=== PATIENT | male | born 1980 | race Caucasian/White ===

== ENCOUNTER 2016-12-20 17:52 | Emergency (ER) | payer OTHER ==
[~2016-12-20] VITALS: Ht 162.6 cm; Wt 53.1 kg
[~2016-12-20 17:52] MED LIST: CARBXR200 PO; LISI-363 PO; MULT-65 PO; TEGR100T PO; ZOFR4SOL PO; ZOFR4TAB3 SL
[2016-12-20 17:57] VITALS: BP 111/74; PULSE 89; RESP 16; TEMP 98.7; O2SAT 99
--- NOTE | 2016-12-20 18:44 | PD ---
HPI Chief Complaint: Headache Time Seen by Provider: 18:40 Travel History International Travel<30 days: No Contact w/Intl Traveler<30days: No Traveled to known affect area: No History of Present Illness HPI Patient is a 36-year-old male presenting to the emergency department for evaluation of a headache injury. Patient states he was hit in head with a volleyball, it caused immediate headache. Patient states he laid on the floor until he regained his composure. He denies any loss of consciousness any vomiting a change in mentation. 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 Patient also has a medical history of cerebral palsy, seizure disorder. He denies any other complaints at this time. PFSH Past Medical History Hx Anticoagulant Therapy: Yes Arthritis: Yes (RT KNEE) Asthma: No Blood Disorders: No Anxiety: No Depression: No Heart Rhythm Problems: No Cancer: No Cardiac Catheterization: No High Cholesterol: No Chemotherapy: No Chest Pain: No Congestive Heart Failure: No COPD: No Diabetes: No Diminished Hearing: No Endocrine: No Gastrointestinal Disorders: Yes (ULCER) Genitourinary: No Headaches: Yes Hypertension: Yes Immune Disorder: No Implanted Vascular Access Dvce: Yes (EYEGLASS LENS GRINDER SHUNT) Musculoskeletal: Yes (cerebral palsy) Neurologic: Yes (HYDROCEPHALUS) Psychiatric: No Reproductive: No Respiratory: Yes Immunizations Current: Yes Radiation Therapy: No 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) Sleep Apnea: No Thyroid Disease: No Ulcer: Yes Tetanus Vaccination: < 5 Years Influenza Vaccination: No Past Surgical History Abdominal Surgery: Yes (J-TUBE, REMOVED) Body Medical Devices: vp of technology shunt Cardiac Surgery: No Coronary Artery Bypass Graft: No Ear Surgery: No Endocrine Surgery: No Eye Surgery: No Genitourinary Surgery: No Gynecologic Surgery: No Neurologic Surgery: Yes (EYEGLASS LENS GRINDER SHUNT + REVISED 2009, 2012 ) Oral Surgery: No Pacemaker: No Thoracic Surgery: No Other Surgery: Yes (cerebal palsy, release tendons on right leg) Social History Alcohol Use: No Tobacco Use: No Substance Use: No Allergies-Medications (Allergen,Severity, Reaction): Coded Allergies: Prilosec (Verified Allergy, Severe, ABDOMINAL PAIN, 12/20/16) Sudafed (Verified Allergy, Unknown, UNKNOWN, 12/20/16) Reported Meds & Prescriptions Reported Meds & Active Scripts Active Reported Lisinopril 20 Mg Tab 20 Mg PO HS Tegretol-Xr 12 HR (Carbamazepine) 200 Mg Tab 200 Mg PO DAILY IN THE AM Tegretol-Xr 12 HR (Carbamazepine) 200 Mg Tab 300 Mg PO HS Take 1 tablet (200mg) with 100mg tablet for a total dose of 300mg Tegretol-Xr 12 HR (Carbamazepine) 100 Mg Tab 300 Mg PO HS Take 1 tablet (100mg) with 200mg tablet for a total dose of 300mg Review of Systems Except as stated in HPI: all other systems reviewed are Neg Eyes: No: Blurred Vision, Visual changes HENT: Positive: Headaches Gastrointestinal: Positive: Nausea Neurologic: Positive: Headache, No: Focal Abnormalities, Change in Mentation, Sensory Disturbance Physical Exam Narrative GENERAL: Well-developed, well-nourished, alert male. Resting comfortably in no acute distress. SKIN: Warm and dry. No rash or obvious lesions. HEAD: Atraumatic. Normocephalic. EYES: Pupils equal and round. No scleral icterus. No injection or drainage. ENT: No nasal bleeding or discharge. Mucous membranes pink and moist. NECK: Trachea midline. No JVD. CARDIOVASCULAR: Regular rate and rhythm. No murmur appreciated. RESPIRATORY: No accessory muscle use. Clear to auscultation. Breath sounds equal bilaterally. GASTROINTESTINAL: Abdomen soft, non-tender, nondistended. Hepatic and splenic margins not palpable. MUSCULOSKELETAL: No obvious deformities. No clubbing. No cyanosis. No edema. NEUROLOGICAL: Awake and alert. No obvious cranial nerve deficits. Motor grossly within normal limits. Normal speech. PSYCHIATRIC: Appropriate mood and affect; insight and judgment normal. Data Data Last Documented VS Vital Signs Date Time Temp Pulse Resp B/P Pulse Ox O2 Delivery O2 Flow Rate FiO2 12/20/16 18:17 Room Air 12/20/16 17:57 98.7 89 16 111/74 99 Orders Shunt Series (12/20/16 ) Ct Brain W/O Iv Contrast(Rout) (12/20/16 ) MDM Medical Decision Making Medical Screen Exam Complete: Yes Emergency Medical Condition: Yes Interpretation(s) Vital Signs Date Time Temp Pulse Resp B/P Pulse Ox O2 Delivery O2 Flow Rate FiO2 12/20/16 18:17 Room Air 12/20/16 17:57 98.7 89 16 111/74 99 Differential Diagnosis Contusion versus concussion versus hemorrhage versus other Narrative Course Patient is a 36-year-old male presenting to the emergency department for evaluation after being hit in head with a volleyball. Patient was concerned because he has a EYEGLASS LENS GRINDER shunt. Patient is neurologically intact. He does have cerebral palsy. Shunt series reports an intact shunt CT of the brain is negative for acute abnormality Patient was advised on findings. He is encouraged to follow-up with his primary doctor. He was encouraged take jhzw-shj-cyjxzik acetaminophen or ibuprofen as needed and as directed for headaches. He is advised to return to emergency department immediately for any new or worsening symptoms. He verbalized understanding of these instructions. Patient is stable for discharge. Diagnosis Primary Impression: Minor head injury without loss of consciousness Qualified Code: S09.90XA - Minor head injury without loss of consciousness, initial encounter Referrals: Primary Care Physician Patient Instructions: General Instructions, Head Injury (ED) Additional Instructions: Follow-up with your primary doctor Take mxwj-clw-fdaaimp acetaminophen or ibuprofen as needed and as directed for headaches Return to emergency department immediately for any new or worsening symptoms Med/Other Pt SpecificInfo: No Change to Meds Disposition: 01 DISCHARGE HOME Condition: Stable Patrizia Whatley [facility] Dec 20, 2016 18:44
--- NOTE | 2016-12-20 18:53 | RADRPT ---
EXAM DATE/TIME: 12/20/2016 18:34 [facility] COMPARISON: CT BRAIN W/O CONTRAST, June 30, 2016, 0:16. INDICATIONS : Hit in head with volleyball today, cephalgia. RADIATION DOSE: 38.99 CTDIvol (mGy) MEDICAL HISTORY : Seizures.cerebral palsy SURGICAL HISTORY : COPIER OPERATOR shunt placement ENCOUNTER: Initial ACUITY: 1 day PAIN SCALE: 7/10 LOCATION: Bilateral head TECHNIQUE: Multiple contiguous axial images were obtained of the head. Using automated exposure control and adj ustment of the mA and/or kV according to patient size, radiation dose was kept as low as reasonably a chievable to obtain optimal diagnostic quality images. FINDINGS: Shunt catheter tubing from a right frontal approach again seen and unchanged. There are no fractures. Previous sherie hole placement seen and unchanged. There is marked atrophy posteriorly with white radha er volume loss and associated dilatation of the posterior horns unchanged. A large calcified subdural collection along the left cerebral convexity with mild associated mass effect is unchanged. There is a smaller chronic subdural collection with peripheral calcification on the right. No acute hemorrhag e, infarct, or mass. CONCLUSION: No significant change has occurred. Jonathon Fenton MD on December 20, 2016 at 18:49 Board Certified Radiologist. This report was verified electronically.
[2016-12-20] MEDS ORDERED: TEGR100T PO (19:07)
[2016-12-20] MEDS ORDERED: CARBXR200 PO ×2 (19:07)
[2016-12-20] MEDS ORDERED: LISI-515 PO (19:07)
--- NOTE | 2016-12-20 19:13 | RADRPT ---
EXAM DATE/TIME: 12/20/2016 18:41 [facility] COMPARISON: SHUNT SERIES, March 25, 2016, 21:53. INDICATIONS : Pain and headache after injury to upper head with volleyball. MEDICAL HISTORY : Hypertension. Cerebral palsy. Hydrocephalus. SURGICAL HISTORY : RESIDENTIAL MONITOR shunt. PEG tube. ENCOUNTER: Initial ACUITY: 1 day PAIN SCORE: 5/10 LOCATION: Bilateral skull. FINDINGS: Radiograph of the skull, neck, chest and abdomen performed to evaluate shunt patency. The shunt cath eter is seen entering the right frontal region with its tip in the region of the body of the right la teral ventricle.. The catheter is continuous in its course terminating in the pelvis. No catheter disruption is identif ied. The visualized heart, lungs and abdominal structures are intact. CONCLUSION: Intact shunt. Jonathon Fenton MD on December 20, 2016 at 19:09 Board Certified Radiologist. This report was verified electronically.
== END 2016-12-20 19:44 | disposition home or self-care (01) ==
LOC: NEPE 17:52
DX: S09.90XA Unspecified injury of head, initial encounter (principal); W21.06XA Struck by volleyball, initial encounter
CPT/HCPCS: 70250; 70450; 71010; 72040; 74000

== ENCOUNTER 2016-12-25 17:18 | Emergency (ER) | payer OTHER ==
[~2016-12-25] VITALS: Ht 162.6 cm; Wt 53.0 kg
[~2016-12-25 17:18] MED LIST changes: -LISI-363 PO; +LISI-515 PO; -MULT-65 PO; -ZOFR4SOL PO; -ZOFR4TAB3 SL
[2016-12-25 17:20] VITALS: BP 133/86; PULSE 84; RESP 20; TEMP 98.2; O2SAT 97
[2016-12-25 19:32] VITALS: BP 150/97; PULSE 75; RESP 18; O2SAT 100
[2016-12-25] MEDS ORDERED: ONDANSETRON HCL 4 MG/2 ML VIAL IV PUSH ONE (19:45)
[2016-12-25] MEDS ORDERED: ACETAMIN 325 MG/BUTALBITAL 50 MG/CAFFEINE 40 MG TAB PO ONE (19:45)
--- NOTE | 2016-12-25 20:47 | PD ---
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 The patient describes having a frontal headache which he tells me is not that bad. He states he usually takes Fioricet for this, however he has run out of this medication. He tried contacting his primary care physician' s office today, however they were closed. He was seen in the emergency department 6 days ago after a volleyball struck him in the head and had a CT head that was unremarkable as well as a SALESPERSON [employer] GLASSWARE shunt series that showed an intact shunt. No fevers. Patient reports having a few episodes of nausea and vomiting. He is concerned about the drip rate of his SALESPERSON [employer]ASS[employer] shunt. PFSH Past Medical History Hx Anticoagulant Therapy: Yes Arthritis: Yes (RT KNEE) Asthma: No Blood Disorders: No Anxiety: No Depression: No Heart Rhythm Problems: No Cancer: No Cardiac Catheterization: No High Cholesterol: No Chemotherapy: No Chest Pain: No Congestive Heart Failure: No COPD: No Diabetes: No Diminished Hearing: No Endocrine: No Gastrointestinal Disorders: Yes (ULCER) Genitourinary: No Headaches: Yes Hypertension: Yes Immune Disorder: No Implanted Vascular Access Dvce: Yes (SALESPERSON CH[employer] AND GLASSWARE SHUNT) Musculoskeletal: Yes (cerebral palsy) Neurologic: Yes (HYDROCEPHALUS, EPILEPSY) Psychiatric: No Reproductive: No Respiratory: Yes Immunizations Current: Yes Radiation Therapy: No 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) Sleep Apnea: No Thyroid Disease: No Ulcer: Yes Influenza Vaccination: No Past Surgical History Abdominal Surgery: Yes (J-TUBE, REMOVED) Body Medical Devices: vp digital marketing social media and crm shunt Cardiac Surgery: No Coronary Artery Bypass Graft: No Ear Surgery: No Endocrine Surgery: No Eye Surgery: No Genitourinary Surgery: No Gynecologic Surgery: No Neurologic Surgery: Yes (SALESPERSON CHINA AND GLASSWARE SHUNT + REVISED 2012 ) Oral Surgery: No Pacemaker: No Thoracic Surgery: No Other Surgery: Yes (cerebal palsy, release tendons on right leg) Social History Alcohol Use: No Tobacco Use: No Substance Use: No Allergies-Medications (Allergen,Severity, Reaction): Coded Allergies: Prilosec (Verified Allergy, Severe, ABDOMINAL PAIN, 12/25/16) Sudafed (Verified Allergy, Unknown, UNKNOWN, 12/25/16) Reported Meds & Prescriptions Reported Meds & Active Scripts Active Reported Lisinopril 20 Mg Tab 20 Mg PO HS Tegretol-Xr 12 HR (Carbamazepine) 200 Mg Tab 200 Mg PO DAILY IN THE AM Tegretol-Xr 12 HR (Carbamazepine) 200 Mg Tab 300 Mg PO HS Take 1 tablet (200mg) with 100mg tablet for a total dose of 300mg Tegretol-Xr 12 HR (Carbamazepine) 100 Mg Tab 300 Mg PO HS Take 1 tablet (100mg) with 200mg tablet for a total dose of 300mg Review of Systems Except as stated in HPI: all other systems reviewed are Neg Physical Exam Narrative GENERAL: Well-developed, well-nourished, awake, alert, very comfortable, playing on cell phone, overall very well-appearing. SKIN: Warm and dry. No rash. HEAD: Atraumatic. Normocephalic. SALESPERSON [employer] GLASSWARE shunt port is easily depressible. EYES: Pupils equal and round. No scleral icterus. No injection or drainage. ENT: Mucous membranes pink and moist. NECK: Trachea midline. No JVD. No nuchal rigidity. CARDIOVASCULAR: Regular rate and rhythm. No murmur appreciated. NEUROLOGICAL: Awake and alert. No obvious cranial nerve deficits. Motor grossly within normal limits. Normal speech. PSYCHIATRIC: Appropriate mood and affect; insight and judgment normal. Data Data Last Documented VS Vital Signs Date Time Temp Pulse Resp B/P Pulse Ox O2 Delivery O2 Flow Rate FiO2 12/25/16 19:32 75 18 150/97 100 Room Air 12/25/16 17:[address] Brain W/O Iv Contrast(Rout) (12/25/16 ) Vqyc-Hejme-Pofg 325-50-40 Mg (Fioricet 3 (12/25/16 19:45) Ondansetron Inj (Zofran Inj) (12/25/16 19:45) MDM Medical Decision Making Medical Screen Exam Complete: Yes Emergency Medical Condition: Yes Medical Record Reviewed: Yes Differential Diagnosis Hydrocephalus, SALESPERSON [employer] GLASS[employer] shunt malfunction, meningitis/encephalitis unlikely, acute on chronic headache Narrative Course Initial vital signs show heart rate 84, blood pressure 133/86, pulse ox 97% on room air, oral temp of 98.2F. CT head: CONCLUSION: Chronic findings are not significantly changed, as above. No bleed or evidence of acute ventricular obstruction. The patient is very well-appearing. He is resting comfortably on the stretcher and talking on his cell phone calmly. He is afebrile. There is no nuchal rigidity. He ambulated to the restroom without assistance while in the emergency department. He was given Fioricet and Zofran and reports that his symptoms have significantly improved. At this point I believe he is stable for discharge home with outpatient follow-up with his primary care physician as well as his neurologist/neurosurgeon this week. He was informed on when to return to the emergency department. He verbalizes understanding and agreement with plan. Diagnosis Primary Impression: Cephalgia Qualified Code: R51 - Nonintractable headache, unspecified chronicity pattern , unspecified headache type Additional Impression: Nausea and vomiting Qualified Code: R11.2 - Non-intractable vomiting with nausea, unspecified vomiting type Referrals: Kevin Martin MD 3 days Primary Care Physician 3 days Additional Instructions: Follow-up with your primary care physician this week. Follow-up with your neurosurgeon Dr. Martin this week. Return to the emergency department for worsening symptoms or any other concerns. Scripts Matcmomelz-Hqbzqxpgwkpwp-Fwohmdre (Fioricet)50-300-40 Mg Cap1 Cap PO Q4H PRN ( HEADACHE) #12 CAP Ref 0 Prov:Esvin Palumbo MD 12/25/16 Disposition: 01 DISCHARGE HOME Condition: Stable Esvin Palumbo MD Dec 25, 2016 20:47
--- NOTE | 2016-12-25 21:35 | RADRPT ---
EXAM DATE/TIME: 12/25/2016 20:41 [facility] COMPARISON: CT BRAIN W/O CONTRAST, June 30, 2016, 0:16. CT BRAIN W/O CONTRAST, December 20, 2016, 18:34. INDICATIONS : Vomiting, nausea and headache. RADIATION DOSE: 56.35 CTDIvol (mGy) MEDICAL HISTORY : Cerebrovascular disease. Seizures. Cerebral palsy. Hydrocephalus. 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 ENCOUNTER: Initial ACUITY: 1 day PAIN SCALE: 7/10 LOCATION: cranial TECHNIQUE: Multiple contiguous axial images were obtained of the head. Using automated exposure control and adj ustment of the mA and/or kV according to patient size, radiation dose was kept as low as reasonably a chievable to obtain optimal diagnostic quality images. FINDINGS: Shunt catheter tubing from a right frontal approach again seen and unchanged. There are no fractures. Previous sherie hole placement seen and unchanged. There is marked atrophy posteriorly with white radha er volume loss and associated dilatation of the posterior horns unchanged. A large calcified subdural collection along the left cerebral convexity with mild associated mass effect is unchanged. There is a smaller chronic subdural collection with peripheral calcification on the right. No acute hemorrhag e, infarct, or mass. CONCLUSION: Chronic findings are not significantly changed, as above. No bleed or evidence of acute ventricular o bstruction. Ismael Hernandez MD on December 25, 2016 at 21:32 Board Certified Radiologist. This report was verified electronically.
[2016-12-25] MEDS ORDERED: BUTA1CAP PO (21:45)
== END 2016-12-25 22:09 | disposition home or self-care (01) ==
LOC: NEPE 17:18
DX: R51 Headache (principal); R11.2 Nausea with vomiting, unspecified; I10 Essential (primary) hypertension; Z79.01 Long term (current) use of anticoagulants; Z86.69 Personal history of other diseases of the nervous system and sense organs; Z87.39 Personal history of other diseases of the musculoskeletal system and connective tissue; Z87.19 Personal history of other diseases of the digestive system; Z87.09 Personal history of other diseases of the respiratory system
CPT/HCPCS: 70450; 96374; 99284; J2405

== ENCOUNTER 2017-02-26 12:02 | Emergency (ER) | payer OTHER ==
[~2017-02-26] VITALS: Ht 162.6 cm; Wt 60.0 kg
[~2017-02-26 12:02] MED LIST changes: +BUTA1CAP PO
[2017-02-26 12:04] VITALS: BP 151/79; PULSE 68; RESP 20; TEMP 99; O2SAT 98
--- NOTE | 2017-02-26 12:10 | PD ---
Physical Exam Date Seen by Provider: February 26, 2017 Time Seen by Provider: 12:06 Narrative 36 YOWM C/O VOMITING SINCE YEST NOON. TAKING ZOFRAN. H/O VOMITING. PT OF DR DELACRUZ. NO F/C. NO ABD PAIN OR DIARRHEA. VSS wating for bed asignment Data Data Last Documented VS Vital Signs Date Time Temp Pulse Resp B/P Pulse Ox O2 Delivery O2 Flow Rate FiO2 02/26/17 12:04 99.0 68 20 151/79 98 Room Air [facility] Medical Record Reviewed: No Supervised Visit with SHAQ: Joe Ding February 26, 2017 12:10
--- NOTE | 2017-02-26 13:35 | PD ---
HPI Chief Complaint: GI Complaint Time Seen by Provider: 13:34 Travel History International Travel<30 days: No Contact w/Intl Traveler<30days: No Traveled to known affect area: No History of Present Illness HPI 36-year-old male came to the emergency room with history of vomiting for past 2- 3 days. Patient has history of chronic vomiting and weight loss. He seen GI specialist and has had endoscopies done. Patient has Zofran and says that he's been taking it but doesn't work. Vital signs were otherwise stable. [facility] Past Medical History Narrative Medical List of his past medical, surgical, social and family history was reviewed from the nursing note. Hx Anticoagulant Therapy: Yes Arthritis: Yes (RT KNEE) Asthma: No Blood Disorders: No Anxiety: No Depression: No Heart Rhythm Problems: No Cancer: No Cardiac Catheterization: No High Cholesterol: No Chemotherapy: No Chest Pain: No Congestive Heart Failure: No COPD: No Diabetes: No Diminished Hearing: No Endocrine: No Gastrointestinal Disorders: Yes (ULCER) Genitourinary: No Headaches: Yes Hypertension: Yes Immune Disorder: No Implanted Vascular Access Dvce: Yes (DOG BARBER SHUNT) Musculoskeletal: Yes (cerebral palsy) Neurologic: Yes (HYDROCEPHALUS, EPILEPSY) Psychiatric: No Reproductive: No Respiratory: Yes Immunizations Current: Yes Radiation Therapy: No 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) Sleep Apnea: No Thyroid Disease: No Ulcer: Yes Past Surgical History Abdominal Surgery: Yes (J-TUBE, REMOVED) Body Medical Devices: vp global shunt Cardiac Surgery: No Coronary Artery Bypass Graft: No Ear Surgery: No Endocrine Surgery: No Eye Surgery: No Genitourinary Surgery: No Gynecologic Surgery: No Neurologic Surgery: Yes (DOG BARBER SHUNT + REVISED 2009, 2012 ) Oral Surgery: No Pacemaker: No Thoracic Surgery: No Other Surgery: Yes (cerebal palsy, release tendons on right leg) Social History Alcohol Use: No Tobacco Use: No Substance Use: No Allergies-Medications (Allergen,Severity, Reaction): Coded Allergies: Prilosec (Verified Adverse Reaction, Severe, ABDOMINAL PAIN, 02/26/17) Sudafed (Verified Adverse Reaction, Unknown, abdominal pain, 02/26/17) Comments List of his allergies reviewed from the nursing note. Reported Meds & Prescriptions Reported Meds & Active Scripts Active Bentyl (Dicyclomine HCl) 20 Mg Tab 20 Mg PO QID PRN Phenergan Supp (Promethazine HCl) 12.5 Mg Supp 12.5 Mg RECTAL Q4H PRN Reported Tegretol (Carbamazepine) 200 Mg Tab 300 Mg PO HS Tegretol-Xr 12 HR (Carbamazepine) 200 Mg Tab 200 Mg PO Q12HR Ondansetron (Ondansetron HCl) 8 Mg Tab 4 Mg PO TID Lisinopril 20 Mg Tab 20 Mg PO HS Tegretol-Xr 12 HR (Carbamazepine) 200 Mg Tab 200 Mg PO DAILY IN THE AM Narrative Medication List of his home medications reviewed from the nursing note. Review of Systems Except as stated in HPI: all other systems reviewed are Neg Physical Exam Narrative GENERAL: Awake, alert, no obvious distress SKIN: Focused skin assessment warm/dry. HEAD: Atraumatic. Normocephalic. EYES: Pupils equal and round. No scleral icterus. No injection or drainage. ENT: No nasal bleeding or discharge. Mucous membranes pink and moist. NECK: Trachea midline. No JVD. CARDIOVASCULAR: Regular rate and rhythm. No murmur appreciated. RESPIRATORY: No accessory muscle use. Clear to auscultation. Breath sounds equal bilaterally. GASTROINTESTINAL: Abdomen soft, non-tender, nondistended. Hepatic and splenic margins not palpable. MUSCULOSKELETAL: No obvious deformities. No clubbing. No cyanosis. No edema. NEUROLOGICAL: Awake and alert. No obvious cranial nerve deficits. Motor grossly within normal limits. Normal speech. PSYCHIATRIC: Appropriate mood and affect; insight and judgment normal. Data Data Last Documented VS Vital Signs Date Time Temp Pulse Resp B/P Pulse Ox O2 Delivery O2 Flow Rate FiO2 02/26/17 14:49 97.8 81 16 118/77 100 02/26/17 13:58 Room Air Orders Complete Blood Count With Diff (02/26/17 13:50) Comprehensive Metabolic Panel (02/26/17 13:50) Lipase (02/26/17 13:50) Iv Access Insert/Monitor (02/26/17 13:50) Ecg Monitoring (02/26/17 13:50) Oximetry (02/26/17 13:50) Sodium Chlor 0.9% 1000 Ml Inj (Ns 1000 M (02/26/17 13:50) Sodium Chloride 0.9% Flush (Ns Flush) (02/26/17 14:00) Metoclopramide Inj (Reglan Inj) (02/26/17 14:00) Labs Laboratory Tests Test 02/26/17 13:52 White Blood Count 4.0 TH/MM3 Red Blood Count 4.29 MIL/MM3 Hemoglobin 12.7 GM/DL Hematocrit 38.1 % Mean Corpuscular Volume 88.7 FL Mean Corpuscular Hemoglobin 29.6 PG Mean Corpuscular Hemoglobin 33.4 % Concent Red Cell Distribution Width 13.5 % Platelet Count 212 TH/MM3 Mean Platelet Volume 7.4 FL Neutrophils (%) (Auto) 69.1 % Lymphocytes (%) (Auto) 23.0 % Monocytes (%) (Auto) 6.2 % Eosinophils (%) (Auto) 1.1 % Basophils (%) (Auto) 0.6 % Neutrophils # (Auto) 2.8 TH/MM3 Lymphocytes # (Auto) 0.9 TH/MM3 Monocytes # (Auto) 0.2 TH/MM3 Eosinophils # (Auto) 0.0 TH/MM3 Basophils # (Auto) 0.0 TH/MM3 CBC Comment DIFF FINAL Differential Comment Sodium Level 140 MEQ/L Potassium Level 4.1 MEQ/L Chloride Level 105 MEQ/L Carbon Dioxide Level 30.9 MEQ/L Anion Gap 4 MEQ/L Blood Urea Nitrogen 7 MG/DL Creatinine 0.96 MG/DL Estimat Glomerular Filtration 88 ML/MIN Rate Random Glucose 95 MG/DL Calcium Level 9.1 MG/DL Total Bilirubin 0.4 MG/DL Aspartate Amino Transf 22 U/L (AST/SGOT) Alanine Aminotransferase 39 U/L (ALT/SGPT) Alkaline Phosphatase 69 U/L Total Protein 7.0 GM/DL Albumin 3.7 GM/DL Lipase 173 U/L [facility] Medical Decision Making Medical Screen Exam Complete: Yes Emergency Medical Condition: Yes Medical Record Reviewed: Yes Differential Diagnosis Acute on chronic abdominal pain and vomiting. Dehydration, electrolyte abnormality Narrative Course 2:38 PM patient was given IV fluid and IV Reglan. Blood test results of back and within normal limit. I'll discharge him home. Procedures EKG Prior to Arrival: No Diagnosis Primary Impression: Chronic vomiting Additional Impression: Chronic abdominal pain Referrals: Primary Care Physician 2 days Additional Instructions: Please return to the ER if the condition worsens or any other new concerns. Otherwise follow-up with her GI specialist and primary care. Med/Other Pt SpecificInfo: Prescription(s) given Scripts Promethazine Supp (Phenergan Supp)12.5 Mg Supp12.5 Mg RECTAL Q4H PRN (NAUSEA OR VOMITING) #12 SUPP Ref 0 Prov:Cesar Jurado MD 02/26/17 Disposition: 01 DISCHARGE HOME Condition: Stable Cesar Jurado MD February 26, 2017 13:35 Cesar Jurado MD February 26, 2017 13:35
[2017-02-26] MEDS ORDERED: TEGR200T PO (13:46)
[2017-02-26] MEDS ORDERED: CARBXR200 PO (13:46)
[2017-02-26] MEDS ORDERED: ONDA1TAB17 PO (13:46)
[2017-02-26] MEDS ORDERED: SODIUM CHLOR 0.9% 1000 ML INJ 1,000 ML IV SCH (13:50)
[2017-02-26 13:58] VITALS: RESP 16; O2SAT 99
[2017-02-26] MEDS ORDERED: METOCLOPRAMIDE HCL 10 MG/2 ML VIAL IV PUSH ONE (14:00)
[2017-02-26] MEDS ORDERED: SODIUM CHLORIDE 0.9% FLUSH 10 ML FLUSH IV FLUSH PRN (14:00)
[2017-02-26 14:07] LABS: AUTOMATED NEUTROPHIL # 2.8 TH/MM3 (1.8-7.7); BASOPHIL % 0.6 % (0.0-2.0); EOSINOPHIL % 1.1 % (0.0-4.0); HEMATOCRIT 38.1 % (39.0-51.0); HEMO FLAGS DIFF FINAL; LYMPHOCYTE # 0.9 TH/MM3 (1.0-4.8); MEAN CELL VOLUME 88.7 FL (80.0-100.0); MEAN CORPUSCULAR HEMOGLOBIN 29.6 PG (27.0-34.0); MEAN CORPUSCULAR HGB CONC 33.4 % (32.0-36.0); MONO % 6.2 % (0.0-8.0); NEUT % 69.1 % (16.0-70.0); PLATELET COUNT 212 TH/MM3 (150-450); RED BLOOD COUNT 4.29 MIL/MM3 (4.50-5.90); RED CELL DISTRIBUTION WIDTH 13.5 % (11.6-17.2)
[2017-02-26 14:28] LABS: ALT (GPT) 39 U/L (12-78); ANION GAP 4 MEQ/L (5-15); AST (GOT) 22 U/L (15-37); BICARBONATE 30.9 MEQ/L (21.0-32.0); BLOOD UREA NITROGEN 7 MG/DL (7-18); CHLORIDE 105 MEQ/L (98-107); GLOMERULAR FILTRATION RATE 88 ML/MIN (>89); POTASSIUM 4.1 MEQ/L (3.5-5.1); SODIUM (NA) 140 MEQ/L (136-145)
[2017-02-26 14:29] LABS: ALKALINE PHOSPHATASE 69 U/L (45-117); TOTAL BILIRUBIN ADULT 0.4 MG/DL (0.2-1.0)
[2017-02-26] MEDS ORDERED: PROM2SUP RECTAL (14:40)
[2017-02-26 14:49] VITALS: BP 118/77; TEMP 97.8
[2017-02-27] MEDS ORDERED: BENT20TA PO (18:38)
== END 2017-02-26 14:49 | disposition home or self-care (01) ==
LOC: NEPD 12:02
DX: R11.10 Vomiting, unspecified (principal); R10.9 Unspecified abdominal pain; I10 Essential (primary) hypertension; G80.9 Cerebral palsy, unspecified; G40.409 Other generalized epilepsy and epileptic syndromes, not intractable, without status epilepticus; Z98.2 Presence of cerebrospinal fluid drainage device; Z79.01 Long term (current) use of anticoagulants
CPT/HCPCS: 80053; 83690; 85025; 96361; 96374; 99284; J2765; J7030

== ENCOUNTER 2017-02-27 16:41 | Emergency (ER) | payer OTHER ==
[~2017-02-27] VITALS: Ht 162.6 cm; Wt 51.5 kg
[~2017-02-27 16:41] MED LIST changes: -BUTA1CAP PO; +ONDA1TAB17 PO; +PROM2SUP RECTAL; -TEGR100T PO; +TEGR200T PO
[2017-02-27 16:43] VITALS: BP 134/74; PULSE 64; RESP 15; TEMP 98.3; O2SAT 98
[2017-02-27] MEDS ORDERED: BENT20TA PO (18:38)
--- NOTE | 2017-02-27 18:38 | PD ---
HPI Chief Complaint: GI Complaint Time Seen by Provider: 18:01 Travel History International Travel<30 days: No Contact w/Intl Traveler<30days: No Traveled to known affect area: No History of Present Illness HPI This is a 36-year-old male who has a history of cerebral palsy, WORKFORCE SPECIALIST shunt and chronic nausea and vomiting who presents the emergency department with increased vomiting over the past several days. He says that he vomited 5 times today having trouble keeping noodles or devon dana down. He was seen in the emergency department yesterday and given Reglan which helped him for a little bit that when he started to vomit again this morning. He denies any headache or worsening gait instability. He does follow with a GI doctor. He's been taking Zofran but that's not been helping. He has Phenergan suppositories but he says that doesn't help either. He says his father just and he was wondering if we had anything for a "nervous stomach". PFSH Past Medical History Medical History: Denies Significant Hx Hx Anticoagulant Therapy: Yes Arthritis: Yes (RT KNEE) Asthma: No Blood Disorders: No Anxiety: No Depression: No Heart Rhythm Problems: No Cancer: No Cardiac Catheterization: No High Cholesterol: No Chemotherapy: No Chest Pain: No Congestive Heart Failure: No COPD: No Diabetes: No Diminished Hearing: No Endocrine: No Gastrointestinal Disorders: Yes (ULCER) Genitourinary: No Headaches: Yes Hypertension: Yes Immune Disorder: No Implanted Vascular Access Dvce: Yes (WORKFORCE SPECIALIST SHUNT) Musculoskeletal: Yes (cerebral palsy) Neurologic: Yes (HYDROCEPHALUS, EPILEPSY) Psychiatric: No Reproductive: No Respiratory: Yes Immunizations Current: Yes Radiation Therapy: No 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) Sleep Apnea: No Thyroid Disease: No Ulcer: Yes Past Surgical History Surgical History: No Previous Surgery Abdominal Surgery: Yes (J-TUBE, REMOVED) Body Medical Devices: vp product marketing shunt Cardiac Surgery: No Coronary Artery Bypass Graft: No Ear Surgery: No Endocrine Surgery: No Eye Surgery: No Genitourinary Surgery: No Gynecologic Surgery: No Neurologic Surgery: Yes (WORKFORCE SPECIALIST SHUNT + REVISED 2009, 2012 ) Oral Surgery: No Pacemaker: No Thoracic Surgery: No Other Surgery: Yes (cerebal palsy, release tendons on right leg) Social History Alcohol Use: No Tobacco Use: Yes Substance Use: No Allergies-Medications (Allergen,Severity, Reaction): Coded Allergies: Prilosec (Verified Adverse Reaction, Severe, ABDOMINAL PAIN, 02/26/17) Sudafed (Verified Adverse Reaction, Unknown, abdominal pain, 02/26/17) Reported Meds & Prescriptions Reported Meds & Active Scripts Active Phenergan Supp (Promethazine HCl) 12.5 Mg Supp 12.5 Mg RECTAL Q4H PRN Reported Tegretol (Carbamazepine) 200 Mg Tab 300 Mg PO HS Tegretol-Xr 12 HR (Carbamazepine) 200 Mg Tab 200 Mg PO Q12HR Ondansetron (Ondansetron HCl) 8 Mg Tab 4 Mg PO TID Lisinopril 20 Mg Tab 20 Mg PO HS Tegretol-Xr 12 HR (Carbamazepine) 200 Mg Tab 200 Mg PO DAILY IN THE AM Review of Systems Except as stated in HPI: all other systems reviewed are Neg Physical Exam Narrative GENERAL:Well appearing, no acute distress SKIN: Focused skin assessment warm and dry. HEAD: Atraumatic. Normocephalic. EYES: Pupils equal and round. No injection or drainage. ENT: Moist mucous membranes NECK: Trachea midline. CARDIOVASCULAR: Regular rate and rhythm. No murmur appreciated. RESPIRATORY: Clear to auscultation. Breath sounds equal bilaterally. GASTROINTESTINAL: Abdomen soft, non-tender, nondistended. MUSCULOSKELETAL: No obvious deformities. NEUROLOGICAL: Awake and alert. Moving all extremities. No upper extremity ataxia. No dysarthria or aphasia. PSYCHIATRIC: Appropriate mood and affect; insight and judgment normal. Data Data Last Documented VS Vital Signs Date Time Temp Pulse Resp B/P Pulse Ox O2 Delivery O2 Flow Rate FiO2 02/27/17 16:43 98.3 64 15 134/74 98 Orders Dicyclomine Inj (Bentyl Inj) (02/27/17 18:45) Prochlorperazine Inj (Compazine Inj) (02/27/17 18:45) [facility] Medical Decision Making Medical Screen Exam Complete: Yes Emergency Medical Condition: Yes Interpretation(s) Afebrile, no tachycardia, normotensive Labs from yesterday were reassuring. Differential Diagnosis Cyclic vomiting, gastritis, bowel obstruction, WORKFORCE SPECIALIST shunt malfunction, gastroenteritis, depression Narrative Course This is a 36-year-old male who has a history of cerebral palsy with WORKFORCE SPECIALIST shunt and chronic nausea and vomiting who presents to the emergency department with increasing vomiting over the past several days. On exam he appears very well, with moist mucous membranes. He has a baseline neurologic exam. I spoke to Dr. Martin regarding the patient in light of the fact that the patient has no headache or new ataxia he agrees that workup for shunt malfunction is not indicated at this time. I suspect the patient is having increasing symptoms due to the recent loss of his father. I don't think he requires further labs as he appears well hydrated and I don't think he requires diagnostics at this time. I will add Bentyl to his regimen and patient can be discharged home and follow-up with his bundle shaker and his neurosurgeon. Diagnosis Primary Impression: Chronic vomiting Patient Instructions: General Instructions Additional Instructions: If you develop severe or worsening abdominal pain, fever>100.4, persistent vomiting or inability to eat or drink return to the emergency department immediately. Follow up with your primary care physician in 1-2 days for a check-up. Med/Other Pt SpecificInfo: Prescription(s) given Scripts Dicyclomine (Bentyl)20 Mg Tab20 Mg PO QID PRN (CRAMPS) #20 TAB Prov:Cheli Moran MD 02/27/17 Disposition: 01 DISCHARGE HOME Condition: Stable Cheli Moran MD February 27, 2017 18:38
[2017-02-27] MEDS ORDERED: DICYCLOMINE HCL 20 MG/2 ML VIAL IM ONE (18:45)
[2017-02-27] MEDS ORDERED: PROCHLORPERAZINE INJ 10 MG/2 ML VIAL IM ONE (18:45)
== END 2017-02-27 18:40 | disposition home or self-care (01) ==
LOC: NEPD 16:41
DX: R11.2 Nausea with vomiting, unspecified (principal); G80.9 Cerebral palsy, unspecified; I10 Essential (primary) hypertension; G40.409 Other generalized epilepsy and epileptic syndromes, not intractable, without status epilepticus; Z98.2 Presence of cerebrospinal fluid drainage device; Z72.0 Tobacco use
CPT/HCPCS: 96372; 99283; J0500; J0780

== ENCOUNTER 2017-03-16 21:20 | Emergency (ER) | payer OTHER ==
[~2017-03-16] VITALS: Ht 162.6 cm; Wt 60.0 kg
[~2017-03-16 21:20] MED LIST changes: +BENT20TA PO
[2017-03-16 21:22] VITALS: BP 139/88; PULSE 87; RESP 16; TEMP 99; O2SAT 98
--- NOTE | 2017-03-16 21:55 | PD ---
Physical Exam Date Seen by Provider: March 16, 2017 Time Seen by Provider: 21:51 Narrative 36 yo male here for evaluation of seizure disorder and headache. History of seizures. Has had a headache for 4 days. Feels like he is having a seizure. Pain is 8/10. Has a history of CP. Here to get evaluated. Has been taking multiple medications even from his PCP with no relief. Vitals sign stable. Patient awaiting bed placement. Data Data Last Documented VS Vital Signs Date Time Temp Pulse Resp B/P Pulse Ox O2 Delivery O2 Flow Rate FiO2 03/16/17 21:22 99.0 87 16 139/88 98 Room Air [facility] Medical Record Reviewed: Yes Supervised Visit with SHAQ: No Nicholas Beltran March 16, 2017 21:55
--- NOTE | 2017-03-16 23:52 | PD ---
HPI Chief Complaint: Seizure Time Seen by Provider: 22:56 Travel History International Travel<30 days: No Contact w/Intl Traveler<30days: No Traveled to known affect area: No History of Present Illness HPI The patient is a 36 year old male who presents to the [facility] emergency department with a history of persistent headache over the last 5 days. He reports that the headache has been constant. He reports that the sensation is a squeezing sensation around the top of his head like he is being "juiced like a lemon." The patient reports that he had a similar headache a month ago. He reports that he underwent CT scan of the brain for evaluation of his CONSTRUCTION SALES MANAGER shunt. No abnormality was noted and he was instructed to follow-up with Dr. Martin, his neurosurgeon. He reports that he call for an appointment, however Dr. Martin's office reported that they reviewed the imaging and no follow-up was necessary. He reports that he has not seen his neurologist for approximately one year. He reports that he sees a neurologist out of [place]. He is prescribed Tegretol for seizures. The patient last saw his primary care physician over a month ago. He reports that he sees him on a monthly basis. His primary care doctor is Dr. Kadeem Arthur. The patient reports that he has tried taking Aleve, ibuprofen, and leftover Lortab for his headache without relief. He reports that the Lortab was left over from a prior leg surgery. He denies having any nausea, vomiting, or diarrhea with this, however he does report having a diminished appetite with poor by mouth intake for the last 3 days. He denies having any fevers or chills. He reports that he feels like he is point have a seizure, however he has not had any recent seizures. The patient denies any head trauma. He denies having any syncopal event. He denies having any neck pain. The patient denies any recent fevers, cough, congestion,chest pain, shortness of breath, abdominal pain, vomiting, diarrhea, new urinary symptoms ( he has a history of chronic urinary frequency), or other neurologic symptoms. [facility] Past Medical History Narrative Medical The patient's past medical history is significant for cerebral palsy, history of hydrocephalus status post CONSTRUCTION SALES MANAGER shunt placement, last revised by Dr. Martin one year ago, history of right knee arthritis, history of his right leg being short compared to the left, history of seizure disorder, history of peptic ulcer disease, history of chronic nausea vomiting, history of strabismus with chronic outward gaze of the left eye Hx Anticoagulant Therapy: Yes Arthritis: Yes (RT KNEE) Asthma: No Blood Disorders: No Anxiety: No Depression: No Heart Rhythm Problems: No Cancer: No Cardiac Catheterization: No High Cholesterol: No Chemotherapy: No Chest Pain: No Congestive Heart Failure: No COPD: No Diabetes: No Diminished Hearing: No Endocrine: No Gastrointestinal Disorders: Yes (ULCER) Genitourinary: No Headaches: Yes Hypertension: Yes Immune Disorder: No Implanted Vascular Access Dvce: Yes (CONSTRUCTION SALES MANAGER SHUNT) Musculoskeletal: Yes (cerebral palsy) Neurologic: Yes (HYDROCEPHALUS, EPILEPSY) Psychiatric: No Reproductive: No Respiratory: Yes Immunizations Current: Yes Radiation Therapy: No 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) Sleep Apnea: No Thyroid Disease: No Ulcer: Yes Tetanus Vaccination: < 5 Years Influenza Vaccination: No Past Surgical History Narrative Surgical The patient's past surgical history is significant for CONSTRUCTION SALES MANAGER shunt placement, J- tube placement and the removal, history of tendon release in the right leg Abdominal Surgery: Yes (J-TUBE, REMOVED) Body Medical Devices: svp group director shunt Cardiac Surgery: No Coronary Artery Bypass Graft: No Ear Surgery: No Endocrine Surgery: No Eye Surgery: No Genitourinary Surgery: No Gynecologic Surgery: No Neurologic Surgery: Yes (CONSTRUCTION SALES MANAGER SHUNT + REVISED 2009, 2012 ) Oral Surgery: No Pacemaker: No Thoracic Surgery: No Other Surgery: Yes (cerebal palsy, release tendons on right leg) Social History Alcohol Use: No Tobacco Use: Yes Substance Use: No Allergies-Medications (Allergen,Severity, Reaction): Coded Allergies: Prilosec (Verified Adverse Reaction, Severe, ABDOMINAL PAIN, 03/16/17) Sudafed (Verified Adverse Reaction, Unknown, abdominal pain, 03/16/17) Reported Meds & Prescriptions Reported Meds & Active Scripts Active Reported Tegretol (Carbamazepine) 200 Mg Tab 300 Mg PO HS Lisinopril 20 Mg Tab 20 Mg PO HS Tegretol-Xr 12 HR (Carbamazepine) 200 Mg Tab 200 Mg PO DAILY IN THE AM Review of Systems Except as stated in HPI: all other systems reviewed are Neg General / Constitutional: No: Fever Eyes: No: Visual changes HENT: Positive: Headaches, No: Neck Stiffness, Neck Pain Cardiovascular: No: Chest Pain or Discomfort Respiratory: No: Shortness of Breath Gastrointestinal: Positive: Loss of Appetite, No: Nausea, Vomiting, Diarrhea, Abdominal Pain, Indigestion Genitourinary: No: Dysuria Musculoskeletal: No: Pain Skin: No Rash Neurologic: No: Weakness, Focal Abnormalities, Change in Mentation, Slurred Speech, Sensory Disturbance Psychiatric: No: Depression Endocrine: No: Polydipsia Hematologic/Lymphatic: No: Easy Bruising Physical Exam Narrative General: The patient is a well-developed well-nourished male in no acute distress. Head and Neck exam: Head is normocephalic atraumatic. The patient on palpation is noted to have his CONSTRUCTION SALES MANAGER shunt in place along the right side of his head. The patient has no overlying erythema, edema, drainage, or tenderness on palpation. Eyes: The patient has a history of chronic strabismus with a chronic out word gaze of the left side. Extraocular motion testing in the right eye is intact. Pupils are equal round and reactive to light. Nose: Midline septum with pink mucous membranes Mouth: Dentition unremarkable. Moist mucus membranes. Posterior oropharynx is not erythematous. No tonsillar hypertrophy. Uvula midline. Airway patent. Neck: No palpable lymphadenopathy. No nuchal rigidity. No thyromegaly. Cardiovascular: Regular rate and rhythm without murmurs, gallops, or rubs. Lungs: Clear to auscultation bilaterally. No wheezes, rhonchi, or rales. Abdomen: Soft, without tenderness to palpation in all 4 quadrants of the abdomen. No guarding, rebound, or rigidity. Normal bowel sounds are audible. No tenderness on palpation of McBurney's point. Extremities: No clubbing, cyanosis, or edema. 2+ pulses in all 4 extremities. No calf tenderness on palpation. The patient has a history of chronic shortening of the right leg compared to the left. Back: No costovertebral angle tenderness to palpation. Neurologic Exam: Cranial nerves 2-12 were intact on exam. Strength is 5/5 in all 4 extremities. No sensory deficits noted. Skin Exam: No rash noted. Intact skin that is warm and dry. Data Data Last Documented VS Vital Signs Date Time Temp Pulse Resp B/P Pulse Ox O2 Delivery O2 Flow Rate FiO2 03/16/17 21:55 16 03/16/17 21:22 99.0 87 139/88 98 Room Air Orders Electrocardiogram (03/16/17 23:10) Complete Blood Count With Diff (03/16/17 23:10) Comprehensive Metabolic Panel (03/16/17 23:10) Creatine Kinase (Cpk) (03/16/17 23:10) Ckmb (Isoenzyme) Profile (03/16/17 23:10) Troponin I (03/16/17 23:10) B-Type Natriuretic Peptide (03/16/17 23:10) Prothrombin Time / Inr (Pt) (03/16/17 23:10) Act Partial Throm Time (Ptt) (03/16/17 23:10) Lipase (03/16/17 23:10) Urinalysis - C+S If Indicated (03/16/17 23:10) Carbamazepine (Tegretol) (03/16/17 23:10) Chest, Single Ap (03/16/17 23:10) Ct Brain W/O Iv Contrast(Rout) (03/16/17 23:10) Iv Access Insert/Monitor (03/16/17 23:10) Ecg Monitoring (03/16/17 23:10) Oximetry (03/16/17 23:10) Ketorolac Inj (Toradol Inj) (03/17/17 00:00) Sodium Chlor 0.9% 1000 Ml Inj (Ns 1000 M (03/17/17 00:00) Prochlorperazine Inj (Compazine Inj) (03/17/17 00:00) CKMB (03/16/17 23:40) CKMB% (03/16/17 23:40) Labs Laboratory Tests Test 03/16/17 03/16/17 23:10 23:40 Urine Color YELLOW Urine Turbidity CLEAR Urine pH 6.0 Urine Specific [place] 1.010 Urine Protein NEG mg/dL Urine Glucose (UA) NEG mg/dL Urine Ketones NEG mg/dL Urine Occult Blood NEG Urine Nitrite NEG Urine Bilirubin NEG Urine Urobilinogen LESS THAN 2.0 MG/DL Urine Leukocyte Esterase NEG Urine RBC 1 /hpf Urine WBC LESS THAN 1 /hpf Urine Bacteria RARE /hpf Urine Mucus FEW /lpf Microscopic Urinalysis Comment CULT NOT INDICATED White Blood Count 6.3 TH/MM3 Red Blood Count 4.86 MIL/MM3 Hemoglobin 14.5 GM/DL Hematocrit 43.4 % Mean Corpuscular Volume 89.3 FL Mean Corpuscular Hemoglobin 29.8 PG Mean Corpuscular Hemoglobin 33.4 % Concent Red Cell Distribution Width 13.9 % Platelet Count 290 TH/MM3 Mean Platelet Volume 7.9 FL Neutrophils (%) (Auto) 63.9 % Lymphocytes (%) (Auto) 24.8 % Monocytes (%) (Auto) 7.7 % Eosinophils (%) (Auto) 3.2 % Basophils (%) (Auto) 0.4 % Neutrophils # (Auto) 4.0 TH/MM3 Lymphocytes # (Auto) 1.6 TH/MM3 Monocytes # (Auto) 0.5 TH/MM3 Eosinophils # (Auto) 0.2 TH/MM3 Basophils # (Auto) 0.0 TH/MM3 CBC Comment DIFF FINAL Differential Comment Prothrombin Time 10.8 SEC Prothromb Time International 1.0 RATIO Ratio Activated Partial 24.3 SEC Thromboplast Time Sodium Level 136 MEQ/L Potassium Level 4.4 MEQ/L Chloride Level 98 MEQ/L Carbon Dioxide Level 29.3 MEQ/L Anion Gap 9 MEQ/L Blood Urea Nitrogen 12 MG/DL Creatinine 1.11 MG/DL Estimat Glomerular Filtration 74 ML/MIN Rate Random Glucose 94 MG/DL Calcium Level 9.5 MG/DL Total Bilirubin 0.3 MG/DL Aspartate Amino Transf 17 U/L (AST/SGOT) Alanine Aminotransferase 36 U/L (ALT/SGPT) Alkaline Phosphatase 79 U/L Total Creatine Kinase 103 U/L Creatine Kinase MB 0.7 NG/ML Troponin I LESS THAN 0.02 NG/ML B-Type Natriuretic Peptide LESS THAN 2 PG/ML Total Protein 8.5 GM/DL Albumin 4.7 GM/DL Lipase 215 U/L Carbamazepine (Tegretol) Level 10.4 MCG/ML [facility] Medical Decision Making Medical Screen Exam Complete: Yes Emergency Medical Condition: Yes Medical Record Reviewed: Yes Differential Diagnosis CONSTRUCTION SALES MANAGER malfunction, versus tension headache, versus migraine headache, versus sinusitis, versus anxiety disorder, versus electrolyte derangements, versus dehydration, versus viral syndrome Narrative Course During the course of the patients emergency department visit, the patients history, examination, and differential diagnosis were reviewed with the patient. The patient had IV access obtained and blood work sent for analysis. The patient was placed on a oven technician with oximetry and blood pressure monitoring. The patient was initially provided normal saline 1 L IV fluid bolus, Toradol 15 mg IV, Compazine 5 mg IV. The patients laboratory studies were reviewed and remarkable for a CBC within normal limits, CMP remarkable for a GFR 74, cardiac enzymes within normal limits , BNP less than 2, lipase 215, PT PTT within normal limits. Tegretol level is therapeutic at 10.4, urinalysis is unremarkable. Radiology studies were reviewed and remarkable for a chest x-ray shows no acute abdomen on a. CT scan of the brain shows a stable appearance of the brain with peripheral calcified subdural collections noted bilaterally that are unchanged, deformity and dilatation of the ventricular system that is stable, right frontal CONSTRUCTION SALES MANAGER shunt terminates in stable position. The patient is instructed regarding the importance of following up with his neurologist for additional management of his headaches and seizure disorder as he has not been seen within the last year. I recommended that he follow up later this week for additional treatment. The patient is resting comfortably and feels better, is alert and in no distress. The patients results and examination findings were discussed with the patient. The repeat examination is unremarkable and benign. The history, exam, diagnostic testing, and current condition do not suggest any significant pathology to warrant further testing, continued ED treatment, admission, or surgical evaluation at this point. The vital signs have been stable. The patient does not have uncontrollable pain, intractable vomiting, or other significant symptoms. The patient's condition is stable and appropriate for discharge. The patient will pursue further outpatient evaluation with a primary care physician or other designated or consulting physician as indicated in the discharge instructions. The patient expressed understanding and was agreeable with this plan. Diagnosis Primary Impression: Headache Qualified Code: R51 - Chronic nonintractable headache, unspecified headache type Referrals: Neurologist 2 days Patient Instructions: Acute Headache (ED), General Instructions Med/Other Pt SpecificInfo: No Change to Meds Disposition: 01 DISCHARGE HOME Condition: Stable Bridget Landrum MD March 16, 2017 23:52
[2017-03-17] MEDS ORDERED: SODIUM CHLOR 0.9% 1000 ML INJ 1,000 ML IV ONE
[2017-03-17] MEDS ORDERED: PROCHLORPERAZINE INJ 10 MG/2 ML VIAL IV PUSH ONE
[2017-03-17] MEDS ORDERED: KETOROLAC TROMETHAMINE 30 MG/ML (IVP) VIAL IV PUSH ONE
[2017-03-17 00:23] LABS: BASOPHIL % 0.4 % (0.0-2.0); EOSINOPHIL # 0.2 TH/MM3 (0-0.4); EOSINOPHIL % 3.2 % (0.0-4.0); HEMATOCRIT 43.4 % (39.0-51.0); HEMO FLAGS DIFF FINAL; LYMPH % 24.8 % (9.0-44.0); LYMPHOCYTE # 1.6 TH/MM3 (1.0-4.8); MEAN CELL VOLUME 89.3 FL (80.0-100.0); MEAN CORPUSCULAR HEMOGLOBIN 29.8 PG (27.0-34.0); MEAN CORPUSCULAR HGB CONC 33.4 % (32.0-36.0); MONO % 7.7 % (0.0-8.0); NEUT % 63.9 % (16.0-70.0); PLATELET COUNT 290 TH/MM3 (150-450); RED BLOOD COUNT 4.86 MIL/MM3 (4.50-5.90); RED CELL DISTRIBUTION WIDTH 13.9 % (11.6-17.2); WHITE BLOOD COUNT 6.3 TH/MM3 (4.0-11.0)
[2017-03-17 00:37] LABS: ALT (GPT) 36 U/L (12-78); ANION GAP 9 MEQ/L (5-15); AST (GOT) 17 U/L (15-37); BICARBONATE 29.3 MEQ/L (21.0-32.0); BLOOD UREA NITROGEN 12 MG/DL (7-18); CHLORIDE 98 MEQ/L (98-107); POTASSIUM 4.4 MEQ/L (3.5-5.1); SODIUM (NA) 136 MEQ/L (136-145)
[2017-03-17 00:38] LABS: APTT (PATIENT) 24.3 SEC (24.3-30.1); PROTHROMBIN TIME - PATIENT 10.8 SEC (9.8-11.6)
[2017-03-17 00:38] LABS: BACTERIA, URINE RARE /hpf; BLOOD, URINE NEG (NEG); COMMENT (UR) CULT NOT INDICATED; CULTURE IF INDICATED CULT NOT INDICATED; GLUCOSE,URINE NEG (NEG); KETONE, URINE NEG (NEG); MUCUS URINE FEW /lpf (OCC); NITRITE,URINE NEG (NEG); URINE COLOR YELLOW (YELLW/STRAW)
[2017-03-17 00:41] LABS: ALKALINE PHOSPHATASE 79 U/L (45-117); CREATINE KINASE 103 U/L (39-308); GLOMERULAR FILTRATION RATE 74 ML/MIN (>89); TOTAL BILIRUBIN ADULT 0.3 MG/DL (0.2-1.0)
[2017-03-17 00:55] LABS: CKMB 0.7 NG/ML (0.5-3.6)
[2017-03-17 01:36] VITALS: BP 119/68; PULSE 69; RESP 14; O2SAT 99
--- NOTE | 2017-03-17 08:24 | RADRPT ---
EXAM DATE/TIME: 03/16/2017 23:21 [facility] COMPARISON: CHEST SINGLE AP, June 30, 2016, 0:34. CT BRAIN W/O CONTRAST, December 25, 2016, 20:41. INDICATIONS : Chest pain. MEDICAL HISTORY : Hypertension. SURGICAL HISTORY : Ventriculoperitoneal Shunt. ENCOUNTER: Subsequent ACUITY: 1 day PAIN SCORE: 0/10 LOCATION: Bilateral chest FINDINGS: A single view of the chest demonstrates the lungs to be symmetrically aerated without evidence of mas s, infiltrate or effusion. The cardiomediastinal contours are unremarkable. Osseous structures are intact. Ventricular shunt tubing traverses the medial right chest. CONCLUSION: No acute disease. Ismael Demarco MD on March 16, 2017 at 23:21 Board Certified Radiologist. This report was verified electronically.
--- NOTE | 2017-03-17 08:25 | RADRPT ---
EXAM DATE/TIME: 03/17/2017 00:24 [facility] COMPARISON: CT BRAIN W/O CONTRAST, December 25, 2016, 20:41. INDICATIONS : Headaches past 5 days. RADIATION DOSE: 37.54 CTDIvol (mGy) MEDICAL HISTORY : Cerebrovascular disease. Seizures. Hydrocephalus SURGICAL HISTORY : BALLET MASTER/MISTRESS shunt ENCOUNTER: Initial ACUITY: 4 - 6 days PAIN SCALE: 7/10 LOCATION: cranial TECHNIQUE: Multiple contiguous axial images were obtained of the head. Using automated exposure control and adj ustment of the mA and/or kV according to patient size, radiation dose was kept as low as reasonably a chievable to obtain optimal diagnostic quality images. FINDINGS: Peripherally calcified subdural collections are again noted bilaterally, larger on the left than the right and these are unchanged. Deformity and dilatation of ventricular system is stable. A right fron melanie BALLET MASTER/MISTRESS shunt terminates in stable position. There is no evidence of intracranial hemorrhage. There is nothing to suggest acute infarction. The facial sinuses and mastoids are clear. CONCLUSION: Stable brain appearance Ismael Demarco MD on March 17, 2017 at 0:30 Board Certified Radiologist. This report was verified electronically.
--- NOTE | 2017-03-17 08:59 | EKG ---
Date Performed: 03/17/2017 Time Performed: 00:15:30 PTAGE: 36 years EKG: Sinus rhythm NORMAL ECG NO PREVIOUS TRACING DOCTOR: Chase Gusman Interpretating Date/Time 03/17/2017 08:57:24
== END 2017-03-17 01:38 | disposition home or self-care (01) ==
LOC: NEPE 21:20
DX: R51 Headache (principal); I10 Essential (primary) hypertension; G80.9 Cerebral palsy, unspecified; Z72.0 Tobacco use; Z79.01 Long term (current) use of anticoagulants; Z98.890 Other specified postprocedural states; Z87.39 Personal history of other diseases of the musculoskeletal system and connective tissue; Z86.69 Personal history of other diseases of the nervous system and sense organs; Z87.19 Personal history of other diseases of the digestive system; Z87.09 Personal history of other diseases of the respiratory system
CPT/HCPCS: 70450; 71010; 80053; 80156; 81001; 82550; 82552; 83690; 83880; 84484; 85025; 85610; 85730; 93005; 96361; 96374; 96375; 99285; J0780; J1885; J7030

== ENCOUNTER 2017-04-01 19:41 | Emergency (ER) | payer OTHER ==
[~2017-04-01] VITALS: Ht 165.1 cm; Wt 52.0 kg
[~2017-04-01 19:41] MED LIST changes: -BENT20TA PO; -ONDA1TAB17 PO; -PROM2SUP RECTAL
[2017-04-01 19:48] VITALS: BP 139/89; PULSE 86; RESP 18; O2SAT 98
[2017-04-01] MEDS ORDERED: HYDR-3533 PO (20:41)
--- NOTE | 2017-04-01 20:42 | PD ---
HPI Chief Complaint: Injury Time Seen by Provider: 20:42 Travel History International Travel<30 days: No Contact w/Intl Traveler<30days: No Traveled to known affect area: No History of Present Illness HPI 36-year-old [id number] white male presents emergency Department with complaints of left hand pain after a fall. The patient states that he slipped in the rain prior to arrival for ER to his right hand. He states that he had heard and felt a pop in his hand. Since then he has had pain on the lateral aspect. He's had weakness due to pain. Pain is moderate. No other injuries. No head, neck or back injury. No numbness or tingling. No alleviating factors. 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) Musculoskeletal: Yes (cerebral palsy) Neurologic: Yes (HYDROCEPHALUS, EPILEPSY) Psychiatric: No Reproductive: No Respiratory: Yes Immunizations Current: Yes Radiation Therapy: No 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) Sleep Apnea: No Thyroid Disease: No Ulcer: Yes Tetanus Vaccination: < 5 Years Past Surgical History Abdominal Surgery: Yes (J-TUBE, REMOVED) Body Medical Devices: vp of marketing shunt Cardiac Surgery: No Coronary Artery Bypass Graft: No Ear Surgery: No Endocrine Surgery: No Eye Surgery: No Genitourinary Surgery: No Gynecologic Surgery: No Neurologic Surgery: Yes (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 + 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, 2012 ) Oral Surgery: No Pacemaker: No Thoracic Surgery: No Other Surgery: Yes (cerebal palsy, release tendons on right leg) Family History Family Myocardial Infarction: No Social History Alcohol Use: No Tobacco Use: Yes Substance Use: No Allergies-Medications (Allergen,Severity, Reaction): Coded Allergies: Prilosec (Verified Adverse Reaction, Severe, ABDOMINAL PAIN, 04/01/17) Sudafed (Verified Adverse Reaction, Unknown, abdominal pain, 04/01/17) Reported Meds & Prescriptions Reported Meds & Active Scripts Active Lortab (Hydrocodone-Acetaminophen) 5-325 Mg Tab 1 Tab PO Q6H PRN Reported Tegretol (Carbamazepine) 200 Mg Tab 300 Mg PO HS Lisinopril 20 Mg Tab 20 Mg PO HS Tegretol-Xr 12 HR (Carbamazepine) 200 Mg Tab 200 Mg PO DAILY IN THE AM Review of Systems Except as stated in HPI: all other systems reviewed are Neg HENT: No: Headaches, Neck Stiffness, Neck Pain Cardiovascular: No: Chest Pain or Discomfort, Palpitations Respiratory: No: Cough, Shortness of Breath Gastrointestinal: No: Nausea, Vomiting Musculoskeletal: Positive: Arthralgias, Limited ROM, Weakness, Edema, Pain, No : Myalgias Physical Exam Narrative GENERAL: This is a well-nourished, well-developed patient, in no apparent distress. SKIN: No rashes, ecchymoses or lesions. Warm and dry. HEAD: Atraumatic. Normocephalic. EYES: PERRL, EOMI, no discharge or injection. No scleral icterus. EARS: Clear NOSE: Nasal turbinates appear normal. THROAT: Mucosa pink and moist. Airway patent. NECK: Trachea midline. supple, moves head freely. LUNGS: Clear to auscultation. CV: Regular in rhythm. ABDOMEN: Soft nontender. EXT: No clubbing cyanosis. Examination of the left hand reveals pain over the fourth and fifth metacarpals. There is mild swelling. Early ecchymosis. The skin is intact. He has decreased range of motion in the ring and little finger due to referred pain. No pain in the fingers. No pain in the wrist, elbow or shoulder. The right upper extremity as well as lower extremities are unremarkable. He has intact median/ulnar/radial nerves. Data Data Last Documented VS Vital Signs Date Time Temp Pulse Resp B/P Pulse Ox O2 Delivery O2 Flow Rate FiO2 04/01/17 19:48 86 18 139/89 98 Room Air Orders Hand, Complete ([id number]) (04/01/17 20:17) Ice/Cold Pack (04/01/17 20:17) Splint Or Brace Apply/Monitor (04/01/17 20:40) Acetamin-Hydrocod 325-5 Mg ([place] 5-325 (04/01/17 20:45) MDM Medical Decision Making Medical Screen Exam Complete: Yes Emergency Medical Condition: Yes Medical Record Reviewed: Yes Interpretation(s) Left hand: Positive fracture of the fourth metacarpal. Differential Diagnosis MDM: High Differential diagnoses: Fracture, sprain, strain, dislocation, contusion, neurovascular injury Narrative Course Patient's x-ray reveals a spiral fracture of the fourth metacarpal. Patient's place an ulnar gutter splint given Lortab 5 mg by mouth an ice pack area sling. Diagnosis Primary Impression: Fracture of fourth metacarpal bone of left hand Qualified Code: S62.325A - Closed displaced fracture of shaft of fourth metacarpal bone of left hand, initial encounter Patient Instructions: General Instructions, Narcotic given in the ED Additional Instructions: Rest. Elevation. Ice for next 3 days. Keep splint on a clean and dry. Follow-up with your doctor tomorrow for a hand surgeon referral. Follow-up with a hand surgeon in the next 3-5 days. Return to the ER for emergencies. Med/Other Pt SpecificInfo: Prescription(s) given Scripts Hydrocodone-Acetaminophen (Lortab)5-325 Mg Tab1 Tab PO Q6H PRN (PAIN) #20 TAB Prov:Wendy Winter 04/01/17 Disposition: 01 DISCHARGE HOME Condition: Stable oJe Mari Apr 01, 2017 20:42
[2017-04-01] MEDS ORDERED: ACETAMINOPHEN/HYDROcodone 325 MG/5 MG TAB PO ONE (20:45)
--- NOTE | 2017-04-01 20:45 | RADRPT ---
EXAM DATE/TIME: 04/01/2017 20:21 [facility] COMPARISON: No previous studies available for comparison. INDICATIONS : Left hand pain in 4th and 5th digit region after slipping and falling. MEDICAL HISTORY : Hypertension. SURGICAL HISTORY : Ventriculoperitoneal Shunt. ENCOUNTER: Initial ACUITY: 1 day PAIN SCORE: 10/10 LOCATION: Left hand FINDINGS: Oblique minimally displaced fracture seen of the fourth metacarpal. No other fractures are seen. Ther e is mild flexion deformity across the proximal interphalangeal joint of the little finger of concern for a possible tendon injury. CONCLUSION: 1. Minimally displaced acute oblique fracture involving the proximal shaft of the fourth metacarpal. 2. Suspected little finger tendon injury, age-indeterminate. Ismael Hernandez MD on April 01, 2017 at 20:41 Board Certified Radiologist. This report was verified electronically.
== END 2017-04-01 21:15 | disposition home or self-care (01) ==
LOC: NEPK 19:41
DX: S62.325A Displaced fracture of shaft of fourth metacarpal bone, left hand, initial encounter for closed fracture (principal); I10 Essential (primary) hypertension; Z79.01 Long term (current) use of anticoagulants; Z98.2 Presence of cerebrospinal fluid drainage device; G80.9 Cerebral palsy, unspecified; G40.409 Other generalized epilepsy and epileptic syndromes, not intractable, without status epilepticus; W01.0XXA Fall on same level from slipping, tripping and stumbling without subsequent striking against object, initial encounter; Y93.01 Activity, walking, marching and hiking; Y92.9 Unspecified place or not applicable; Y99.8 Other external cause status
CPT/HCPCS: 29125; 73130

== ENCOUNTER 2018-01-05 13:18 | Emergency (ER) | payer OTHER ==
[~2018-01-05] VITALS: Ht 162.6 cm; Wt 54.0 kg
[~2018-01-05 13:18] MED LIST changes: +HYDR-3533 PO
[2018-01-05 13:45] VITALS: BP 127/70; PULSE 92; RESP 18; TEMP 99; O2SAT 95
[2018-01-05] MEDS ORDERED: CARBXR200 PO (15:00)
[2018-01-05] MEDS ORDERED: TEGR100T PO (15:00)
[2018-01-05] MEDS ORDERED: MELO15TA20 PO (15:47)
--- NOTE | 2018-01-05 15:47 | PD ---
HPI Chief Complaint: Musculoskeletal Complaint Time Seen by Provider: 15:25 Travel History International Travel<30 days: No Contact w/Intl Traveler<30days: No Traveled to known affect area: No History of Present Illness HPI Is a 37-year-old male here with left ankle and foot pain for several weeks. He denies injury or trauma. No fever chills. HEENT is located over the acuity tendon and into the heel of the foot. Pain is worse with ambulation, symptom severity is mild. Has not attempted any alleviating factors. 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) Musculoskeletal: Yes (cerebral palsy) Neurologic: Yes (HYDROCEPHALUS, EPILEPSY) Psychiatric: No Reproductive: No Respiratory: Yes Immunizations Current: Yes Radiation Therapy: No 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) Sleep Apnea: No Thyroid Disease: No Ulcer: Yes Influenza Vaccination: No ?: Not Past Surgical History Abdominal Surgery: Yes (J-TUBE, REMOVED) Body Medical Devices: vp & general counsel shunt Cardiac Surgery: No Coronary Artery Bypass Graft: No Ear Surgery: No Endocrine Surgery: No Eye Surgery: No Genitourinary Surgery: No Gynecologic Surgery: No 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, 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 ) Oral Surgery: No Pacemaker: No Thoracic Surgery: No Other Surgery: Yes (cerebal palsy, release tendons on right leg) Social History Alcohol Use: No Tobacco Use: Yes Substance Use: No Allergies-Medications (Allergen,Severity, Reaction): Coded Allergies: omeprazole (Unverified Adverse Reaction, Severe, ABDOMINAL PAIN, 01/05/18) pseudoephedrine (Unverified Adverse Reaction, Unknown, abdominal pain, ) Reported Meds & Prescriptions Reported Meds & Active Scripts Active Reported Tegretol-Xr 12 HR (Carbamazepine) 200 Mg Tab 200 Mg PO Q12HR Tegretol-Xr 12 HR (Carbamazepine) 100 Mg Tab 100 Mg PO HS Lisinopril 20 Mg Tab 20 Mg PO HS Review of Systems Except as stated in HPI: all other systems reviewed are Neg General / Constitutional: No: Fever Eyes: No: Visual changes HENT: No: Headaches Cardiovascular: No: Chest Pain or Discomfort Respiratory: No: Shortness of Breath Gastrointestinal: No: Abdominal Pain Genitourinary: No: Dysuria Physical Exam Narrative GENERAL: Alert well-appearing 37-year-old male SKIN: Warm and dry. No areas of erythema or warmth. HEAD: Normocephalic. EYES: No injection or drainage. NECK: Supple MUSCULOSKELETAL: No cyanosis, or edema. Left lower extremity: Patient points to the Achilles tendon and the heels as the site of the pain. He can freely flex and extend the ankle. The area is nontender. No swelling. 2+ DP pulse. Brisk cap refill. Data Data Last Documented VS Vital Signs Date Time Temp Pulse Resp B/P (MAP) Pulse Ox O2 Delivery O2 Flow Rate FiO2 01/05/18 13:45 99.0 92 18 127/70 (89) 95 MDM Medical Decision Making Medical Screen Exam Complete: Yes Emergency Medical Condition: Yes Differential Diagnosis Minor ankle sprain/strain, mild Achilles tendon injury, fracture unlikely Narrative Course 37-year-old male here with a minor ankle sprain. The extremity is neurovascularly intact. Ariel wrap applied. Meloxicam for pain. Follow-up with his primary doctor. Diagnosis Primary Impression: Ankle sprain Qualified Codes: S93.402A - Sprain of unspecified ligament of left ankle, initial encounter Referrals: Primary Care Physician Additional Instructions: Medication as directed. Use Ariel wrap for support. Follow-up the primary doctor. Scripts Meloxicam (Meloxicam) 15 Mg Tab 15 MG PO DAILY for Arthritis Pain, #30 TAB 0 Refills Prov: Kely Iglesias 01/05/18 Disposition: 01 DISCHARGE HOME Condition: Stable Kely Iglesias Jan 05, 2018 15:47
== END 2018-01-05 16:59 | disposition home or self-care (01) ==
LOC: PHEFT 13:18
DX: S93.402A Sprain of unspecified ligament of left ankle, initial encounter (principal); I10 Essential (primary) hypertension; G80.9 Cerebral palsy, unspecified; Z98.2 Presence of cerebrospinal fluid drainage device; Z72.0 Tobacco use; Z88.8 Allergy status to other drugs, medicaments and biological substances; Z79.899 Other long term (current) drug therapy
CPT/HCPCS: 99283